=== PATIENT | female | born 1985 | race Caucasian/White ===

== ENCOUNTER 2019-09-21 17:48 | Emergency (ER) | payer MEDICAID ==
--- NOTE | 2019-09-21 18:34 | EDM.PDOC ---
<Gavin Carter - Last Filed: 09/21/19 18:28> ED HPI GENERAL MEDICAL PROBLEM - General Chief Complaint: Abdominal Pain Stated Complaint: ABDOMINAL PAIN Time Seen by Provider: 09/21/19 18:14 Source of Information: Reports: Family History Limitations: Reports: Other (Resident of [facility] History of cerberal palsy. ) - History of Present Illness INITIAL COMMENTS - FREE TEXT/NARRATIVE: Mariela is a 33 YO female that presents from [facility] to the ED with burning during urination. PT is a poor historian but is accompanied by her mother. Mother states that for the past 2-3 days Mariela has been complaining of right sided abdominal pain and burning during urination. It was initially thought to be constipation since she has a history of this but she was given prunes to help passage. Mother believes that Mariela possibly had a bowel movement yesterday. Complaint of abdominal pain persisted after. Onset Date: 09/19/19 Duration: Day(s): Location: Reports: Abdomen Abdomen Pain Score (Numeric/FACES): 6 - Related Data Allergies Allergy/AdvReac Type Severity Reaction Status Date / Time Sulfa (Sulfonamide Allergy Vomiting Verified 09/21/19 18:13 Antibiotics) Home Meds: Home Meds Budesonide [Pulmicort] 1 package INH BID 09/21/19 [History] Calcium Cit/Mgox/Vit D3/B6/Min [Calcium Citrate Plus Tablet] 1 tab PO BID 09/21/19 [History] Cetirizine [ZyrTEC] 10 mg PO DAILY 09/21/19 [History] Fluticasone Propionate [Flovent] 2 spray INH DAILY 09/21/19 [History] Formoterol Fumarate [Perforomist] 1 vial INH BID 09/21/19 [History] Lactulose 15 ml PO DAILY #500 ml 09/21/19 [Rx] Montelukast [Singulair] 10 mg PO DAILY 09/21/19 [History] Neilmed Sinus Rinse 1 dose NASBOTH DAILY 09/21/19 [History] Psyllium Husk (With Sugar) [Fiber Therapy Powder] 1 dose PO DAILY 09/21/19 [History] Risedronate Sodium 35 mg pe PO ASDIRECTED 09/21/19 [History] Triamcinolone Acetonide [Triamcinolone Acetonide 0.1% Crm] 1 applic TOP ASDIRECTED 09/21/19 [History] cephALEXin [Cephalexin] 500 mg PO BID #10 capsule 09/21/19 [Rx] Past Medical History Other Cardiovascular History: heart surgery Respiratory History: Reports: Asthma Neurological History: Reports: Cerebral Palsy, Seizure Psychiatric History: Reports: Anxiety - Past Surgical History HEENT Surgical History: Reports: Adenoidectomy, Tonsillectomy Social & Family History - Tobacco Use Smoking Status *Q: Never Smoker Second Hand Smoke Exposure: No - Caffeine Use Caffeine Use: Reports: None - Recreational Drug Use Recreational Drug Use: No ED ROS GENERAL - Review of Systems Review Of Systems: Comprehensive ROS is negative, except as noted in HPI. ED EXAM, RENAL/ - Physical Exam Exam: See Below Exam Limited By: Other (Resident of [facility] History of CP.) General Appearance: Alert, No Apparent Distress Respiratory/Chest: No Respiratory Distress, Lungs Clear, Normal Breath Sounds, No Accessory Muscle Use Cardiovascular: Regular Rate, Rhythm, No Gallop, No Murmur, No Rub GI/Abdominal: Normal Bowel Sounds, Soft, No Distention, Tender Back Exam: No: CVA Tenderness (L), CVA Tenderness (R) Neurological: Alert Skin Exam: Warm, Dry, Normal Color Departure - Departure Disposition: Home, Self-Care 01 Clinical Impression: UTI (urinary tract infection) Qualifiers: Urinary tract infection type: acute cystitis Hematuria presence: without hematuria Qualified Code(s): N30.00 - Acute cystitis without hematuria Constipation Qualifiers: Constipation type: other constipation type Qualified Code(s): K59.09 - Other constipation - Discharge Information Prescriptions: cephALEXin [Cephalexin] 500 mg PO BID #10 capsule Lactulose 15 ml PO DAILY #500 ml Instructions: Constipation, Adult, [id number], Urinary Tract Infection, Adult, [id number] Forms: ED Department Discharge Additional Instructions: You have been evaluated in the ED for your urinary symptoms/abdomen pain. Your urinalysis was consistent with an acute urinary tract infection. Your urine was sent for culture, and you will be notified if you should need a change in your antibiotic. This may take up to 48 hours to result. You may take AZO for urinary pain relief. This is available over the counter, and can be attained at any retail store like [employer] or any pharmacy. Please be aware that this medication will make your urine turn orange. You have been given a prescription for Cephalexin, 500 mg 1 tablet 2 times a day for 5 days. This antibiotic can take up to 48 hours to start providing benefit. Your other lab work was unremarkable for any sign of a bacterial infection. Your physical exam and work-up today is not consistent with appendicitis at this time. Your x-ray did demonstrate quite a diffuse amount of stool throughout your colon which is more consistent with constipation. You have been provided with a bottle of magnesium citrate, please drink one half bottle mixed with fluid of choice, if you do not have a rather large bowel movement in a few hours, please repeat with the other half bottle. This medication can cause some abdominal cramping, you might want to try some Tylenol or ibuprofen while using this medication if you are having abdominal pain. After you have taken the mag citrate and have had a few good bowel movements, you were given a prescription for lactulose, please take 15 mL's daily to provide further constipation relief, and keep your bowels regular. You may also try an [id number] stool softener like MiraLAX, Dulcolax, etc. Please increase your oral fluid intake and try to stay adequately hydrated. Please return to the ED if your symptoms change or worsen. Sepsis Event Note (ED) - Evaluation Sepsis Screening Result: No Definite Risk <Harriett Vincent - Last Filed: 09/21/19 19:32> Course - Vital Signs Last Recorded V/S: Last Vital Signs Temp 98.4 F 09/21/19 18:07 Pulse 71 09/21/19 18:07 Resp 13 09/21/19 18:07 BP 134/96 H 09/21/19 18:07 Pulse Ox 100 09/21/19 18:07 - Orders/Labs/Meds Orders: Active Orders 24 hr Category Date Time Status KUB [Abdomen 1V Flat] [CR] Stat Exams 09/21/19 18:35 Ordered CBC WITH AUTO DIFF [HEME] Stat Lab 09/21/19 18:35 Ordered CULTURE URINE [RM] Routine Lab 09/21/19 19:23 Ordered Labs: Laboratory Tests 09/21/19 09/21/19 09/21/19 Range/Units 18:50 18:50 19:00 WBC 10.61 H (3.98-10.04) K/mm3 RBC 4.80 (3.98-5.22) M/mm3 Hgb 15.3 (11.2-15.7) gm/dl Hct 46.4 H (34.1-44.9) % MCV 96.7 H (79.4-94.8) fl MCH 31.9 (25.6-32.2) pg MCHC 33.0 (32.2-35.5) g/dl RDW Std Deviation 48.6 H (36.4-46.3) fL Plt Count 347 (182-369) K/mm3 MPV 9.9 (9.4-12.3) fl Neut % (Auto) 62.4 (34.0-71.1) % Lymph % (Auto) 26.6 (19.3-51.7) % [place] % (Auto) 9.0 (4.7-12.5) % Eos % (Auto) 1.2 (0.7-5.8) Baso % (Auto) 0.5 (0.1-1.2) % Neut # (Auto) 6.62 H (1.56-6.13) K/mm3 Lymph # (Auto) 2.82 (1.18-3.74) K/mm3 Gates # (Auto) 0.96 H (0.24-0.36) K/mm3 Eos # (Auto) 0.13 (0.04-0.36) K/mm3 Baso # (Auto) 0.05 (0.01-0.08) K/mm3 Sodium 142 (136-145) mEq/L Potassium 4.1 (3.5-5.1) mEq/L Chloride 104 (98-107) mEq/L Carbon Dioxide 32 (21-32) mEq/L Anion Gap 10.1 (5-15) BUN 12 (7-18) mg/dL Creatinine 1.0 (0.55-1.02) mg/dL Est Cr Clr Drug Dosing 62.10 mL/min Estimated GFR (MDRD) > 60 (>60) mL/min BUN/Creatinine Ratio 12.0 L (14-18) Glucose 93 (74-106) mg/dL Calcium 8.5 (8.5-10.1) mg/dL Total Bilirubin 0.2 (0.2-1.0) mg/dL AST 14 L (15-37) U/L ALT 23 (14-59) U/L Alkaline Phosphatase 63 (46-116) U/L C-Reactive Protein 1.2 H* (<1.0) mg/dL Total Protein 7.2 (6.4-8.2) g/dl Albumin 3.6 (3.4-5.0) g/dl Globulin 3.6 gm/dL Albumin/Globulin Ratio 1.0 (1-2) Urine Color Light yellow (Yellow) Urine Appearance Clear (Clear) Urine pH 6.0 (5.0-8.0) Ur Specific [place] 1.025 (1.005-1.030) Urine Protein Negative (Negative) Urine Glucose (UA) Negative (Negative) Urine Ketones Negative (Negative) Urine Occult Blood 1+ H (Negative) Urine Nitrite Negative (Negative) Urine Bilirubin Negative (Negative) Urine Urobilinogen 0.2 (0.2-1.0) Ur Leukocyte Esterase 1+ H (Negative) Urine RBC 0-5 (0-5) /hpf Urine WBC 5-10 H (0-5) /hpf Ur Squamous Epith Cells 0-5 (0-5) /hpf Urine Bacteria Rare (FEW) /hpf Urine Mucus Not seen (FEW) /hpf - Re-Assessments/Exams Free Text/Narrative Re-Assessment/Exam: 09/21/19 18:42 Patient presents to the ED with her mother for the evaluation of her abdomen pain. I do highly suspect UTI in nature, mother is worried about appendicitis. Patient is most tender in her upper abdomen, which be more consistent with a course of constipation, for which the patient chronically has. I did explain this to the mother, but will order CBC, CMP CRP and a KUB for initial management regarding her belly pain and trying to evaluate for possible appendicitis. 09/21/19 19:27 Patient's KUB is impressive for quite a bit of stool throughout the colon. Patient's white blood cell count is mildly elevated at 10.6, with no left shift, which can be a stress response. Patient CRP is mildly elevated 1.2, other metabolic panel is unremarkable. Patient's urinalysis is positive for 1+ leukocyte Estrace and 5-10 white blood cells, this was a clean-catch. Will be sent for culture for confirmation, but it does appear that she is suffering from UTI and constipation. There is no obvious sign of appendicitis, Becerril's point, Rovsing sign was negative. Patient has no fever. She will be given a bottle of magnesium citrate to help clean her bowels out and started on lactulose after this to help good bowel health regimen. Departure - Departure Time of Disposition: 19:29 Condition: Good - Discharge Information *PRESCRIPTION DRUG MONITORING PROGRAM REVIEWED*: No *COPY OF PRESCRIPTION DRUG MONITORING REPORT IN PATIENT NELL: No Sepsis Event Note (ED) - Focused Exam Vital Signs: Vital Signs Temp Pulse Resp BP Pulse Ox 09/21/19 18:07 98.4 F 71 13 134/96 H 100 - My Orders Last 24 Hours: My Active Orders 09/21/19 18:35 KUB [Abdomen 1V Flat] [CR] Stat CBC WITH AUTO DIFF [HEME] Stat 09/21/19 19:23 CULTURE URINE [RM] Routine - Assessment/Plan Last 24 Hours: My Active Orders 09/21/19 18:35 KUB [Abdomen 1V Flat] [CR] Stat CBC WITH AUTO DIFF [HEME] Stat 09/21/19 19:23 CULTURE URINE [RM] Routine
[2019-09-21] MEDS ORDERED: Magnesium Citrate Solution 296 ML Bottle PO ONE (19:28)
--- NOTE | 2019-09-21 19:43 | CR ---
Abdomen: Supine view of the abdomen was obtained. Mild increased stool within the transverse and right colon is seen. Lesser stool within other portions of the colon. Bowel gas pattern is otherwise unremarkable. Minimal calcifications believed to be benign are seen within the pelvis. Bony structure shows minimal scoliosis within the spine. Impression: 1. Findings as noted above. 2. Nothing acute is appreciated. Diagnostic code #2 Report dictated in MDT
== END 2019-09-21 19:52 | disposition home or self-care (01) ==
LOC: JD.ED 17:48
DX: N30.00 Acute cystitis without hematuria (principal); K59.09 Other constipation; J45.909 Unspecified asthma, uncomplicated; Z90.49 Acquired absence of other specified parts of digestive tract; Z98.890 Other specified postprocedural states; Z88.2 Allergy status to sulfonamides
CPT/HCPCS: 36415; 74018; 80053; 81001; 85025; 86140; 87086; 87088; 99284; A9270; 99283

== ENCOUNTER 2022-06-08 14:21 | Emergency (ER) | payer MEDICAID | END 2022-06-08 17:12 | LOC: EEVIPCON 14:21 → JD.ED 14:21 | DX: Z53.21 Procedure and treatment not carried out due to patient leaving prior to being seen by health care provider (principal) ==

== ENCOUNTER 2022-07-18 15:05 | Emergency (ER) | payer MEDICAID ==
[2022-07-18] MEDS ORDERED: Sodium Chloride 0.9% 10 ML Syringe FLUSH PRN (15:14)
[2022-07-18 15:25] LABS: BASOPHILS ABSOLUTE AUTO 0.05 K/mm3 (0.01-0.08); BASOPHILS PERCENT AUTO 0.5 % (0.1-1.2); EOSINOPHILS ABSOLUTE AUTO 0.13 K/mm3 (0.04-0.36); EOSINOPHILS PERCENT AUTO 1.3 (0.7-5.8); HEMATOCRIT 47.9 % (34.1-44.9); HEMOGLOBIN 15.9 gm/dl (11.2-15.7); IMMATURE GRAN ABSOLUTE AUTO 0.04 K/mm3 (0.00-0.10); IMMATURE GRAN PERCENT AUTO 0.4 % (<=1.0); LYMPHOCYTES ABSOLUTE AUTO 2.42 K/mm3 (1.18-3.74); LYMPHOCYTES PERCENT AUTO 24.1 % (19.3-51.7); MEAN CORPUSCULAR HGB CONC 33.2 g/dl (32.2-35.5); MEAN CORPUSCULAR VOLUME 96.4 fl (79.4-94.8); MEAN PLATELET VOLUME 10.1 fl (9.4-12.3); MONOCYTES ABSOLUTE AUTO 0.89 K/mm3 (0.24-0.36); MONOCYTES PERCENT AUTO 8.9 % (4.7-12.5); NEUTROPHILS PERCENT AUTO 64.8 % (34.0-71.1); PLATELET COUNT,PLT 362 K/mm3 (182-369); RED BLOOD CELL COUNT 4.97 M/mm3 (3.98-5.22); WHITE BLOOD CELL COUNT,WBC 10.03 K/mm3 (3.98-10.04)
[2022-07-18 15:49] LABS: A/G RATIO 0.9 (1-2); ALANINE AMINOTRANSFERASE,ALT 26 U/L (14-59); ALBUMIN 3.9 g/dl (3.4-5.0); ALKALINE PHOSPHATASE 66 U/L (46-116); ANION GAP 14.5 (5-15); ASPARTATE AMNIOTRANSFERASE,AST 32 U/L (15-37); BILIRUBIN TOTAL 0.4 mg/dL (0.2-1.0); BLOOD UREA NITROGEN,BUN 15 mg/dL (7-18); BUN/CREATININE RATIO 13.6 (14-18); CALCIUM 9.5 mg/dL (8.5-10.1); CARBON DIOXIDE,CO2 27 mEq/L (21-32); CHLORIDE,CL 102 mEq/L (98-107); CREATININE 1.1 mg/dL (0.55-1.02); ESTIMATED GFR 66 mL/min (>60); GLUCOSE RANDOM 128 mg/dL (70-99); PROTEIN TOTAL,TP 8.1 g/dl (6.4-8.2); SODIUM,NA 139 mEq/L (136-145)
[2022-07-18 15:50] LABS: POTASSIUM,K 4.5 mEq/L (3.5-5.1); TROPONIN I HIGH SENSITIVITY < 4 pg/mL (<=51)
== END 2022-07-18 17:00 | disposition home or self-care (01) ==
LOC: JD.ED 15:05
DX: R55 Syncope and collapse (principal); J45.909 Unspecified asthma, uncomplicated; Z79.899 Other long term (current) drug therapy; Z88.2 Allergy status to sulfonamides
CPT/HCPCS: 36415; 70450; 71045; 80053; 84484; 85025; 93005; 99285; J3490

== ENCOUNTER 2023-03-18 07:18 | Inpatient (IN) | payer MEDICAID ==
[2023-03-18] MEDS ORDERED: Lactated Ringers 1,000 ML IV ONE (07:42)
[2023-03-18 08:04] LABS: BASOPHILS ABSOLUTE AUTO 0.1 K/mm3 (0.0-0.2); BASOPHILS PERCENT AUTO 0.3 % (0.0-1.0); EOSINOPHILS PERCENT AUTO 0.1 % (0.0-6.0); HEMATOCRIT 48.5 % (37.0-47.0); HEMOGLOBIN 16.5 gm/dl (12.0-16.0); IMMATURE GRAN ABSOLUTE AUTO 0.08 K/mm3 (0.00-0.05); IMMATURE GRAN PERCENT AUTO 0.4 % (0.0-0.4); LYMPHOCYTES ABSOLUTE AUTO 1.1 K/mm3 (1.0-4.8); LYMPHOCYTES PERCENT AUTO 5.4 % (24.0-44.0); MEAN CORPUSCULAR VOLUME 94.2 fl (83.0-99.0); MEAN PLATELET VOLUME 9.5 fl (9.4-12.3); MONOCYTES ABSOLUTE AUTO 1.2 K/mm3 (0.0-0.8); NEUTROPHILS ABSOLUTE AUTO 17.4 K/mm3 (1.8-7.7); NEUTROPHILS PERCENT AUTO 87.8 % (41.0-71.0); PLATELET COUNT,PLT 317 K/mm3 (150-400); RED BLOOD CELL COUNT 5.15 M/mm3 (4.10-5.30); WHITE BLOOD CELL COUNT,WBC 19.76 K/mm3 (3.9-11.3)
[2023-03-18 08:24] LABS: ALBUMIN 3.8 g/dl (3.4-5.0); ANION GAP 14.3 (5-15); BILIRUBIN TOTAL 0.6 mg/dL (0.2-1.0); BUN/CREATININE RATIO 9.1 (14-18); CALCIUM 9.5 mg/dL (8.5-10.1); CREATININE 1.1 mg/dL (0.55-1.02); EST CRCL DRUG DOSING (CG) 54.31 mL/min; POTASSIUM,K 4.3 mEq/L (3.5-5.1); PROTEIN TOTAL,TP 7.7 g/dl (6.4-8.2)
[2023-03-18 08:51] LABS: CORONAVIRUS COVID-19 NAA NEGATIVE (NEGATIVE); INFLUENZA A NAA NEGATIVE (NEGATIVE); RESPIRATORY SYNCYTIAL VIR NAA NEGATIVE (NEGATIVE)
[2023-03-18 09:24] LABS: APPEARANCE,URINE CLEAR (Clear); BILIRUBIN,URINE NEGATIVE (Negative); COLOR,URINE LIGHT YELLOW (Yellow); GLUCOSE,URINE NEGATIVE (Negative); KETONES,URINE NEGATIVE (Negative); LEUKOCYTE ESTERASE,URINE 2+ (Negative); NITRITE,URINE POSITIVE (Negative); OCCULT BLOOD,URINE TRACE-INTACT (Negative); PROTEIN,URINE NEGATIVE (Negative); UROBILINOGEN,URINE 0.2 (0.2-1.0)
[2023-03-18 09:56] LABS: BACTERIA,URINE MANY /hpf (FEW); EPITHELIAL CELLS,URINE 0-5 /hpf (0-5); MUCUS,URINE FEW /hpf (FEW); WBC,URINE 20-30 /hpf (0-5)
[2023-03-18] MEDS ORDERED: cefTRIAXone 1 GM in Sodium Chloride 0.9% 100 ML IV ONE (10:08)
[2023-03-18] MEDS ORDERED: Sodium Chloride 0.9% 1,000 ML IV SCH (10:15)
[2023-03-18] MEDS: Piperacillin/Tazobactam 4.5 GM in Sodium Chloride 0.9% 100 ML IV SCH ×2 (10:48→17:51)
[2023-03-18] MEDS ORDERED: Ondansetron 4 MG/2 ML SDV IVPUSH ONE (13:44)
[2023-03-18] MEDS ORDERED: Acetaminophen 325 MG Tab PO PRN (15:46)
[2023-03-18] MEDS ORDERED: Docusate Sodium 100 MG Cap PO PRN (15:46)
[2023-03-18] MEDS ORDERED: Ondansetron 4 MG Tab.DIS PO PRN (15:46)
[2023-03-18] MEDS ORDERED: Albuterol 6.7 GM Inhaler INH PRN (16:54)
[2023-03-18] MEDS: Ondansetron 4 MG/2 ML SDV IV PRN (19:53)
[2023-03-18] MEDS: Budesonide 0.5 MG/2 ML Neb Susp NEB SCH (20:38)
[2023-03-18] MEDS: Arformoterol 15 MCG/2 ML Neb Soln NEB SCH (20:38)
[2023-03-18] MEDS: Montelukast 10 MG Tab PO SCH (21:00)
[2023-03-19] MEDS: Piperacillin/Tazobactam 4.5 GM in Sodium Chloride 0.9% 100 ML IV SCH ×3 (02:39→18:18)
[2023-03-19 04:37] LABS: BASOPHILS ABSOLUTE AUTO 0.1 K/mm3 (0.0-0.2); BASOPHILS PERCENT AUTO 0.3 % (0.0-1.0); EOSINOPHILS PERCENT AUTO 0.1 % (0.0-6.0); HEMATOCRIT 43.5 % (37.0-47.0); HEMOGLOBIN 14.9 gm/dl (12.0-16.0); IMMATURE GRAN PERCENT AUTO 0.5 % (0.0-0.4); LYMPHOCYTES ABSOLUTE AUTO 1.8 K/mm3 (1.0-4.8); LYMPHOCYTES PERCENT AUTO 8.7 % (24.0-44.0); MEAN CORPUSCULAR HEMOGLOBIN 32.2 pg (28.0-32.0); MEAN CORPUSCULAR HGB CONC 34.3 g/dl (32.0-36.0); MEAN PLATELET VOLUME 9.7 fl (9.4-12.3); MONOCYTES ABSOLUTE AUTO 1.6 K/mm3 (0.0-0.8); MONOCYTES PERCENT AUTO 7.6 % (0.0-8.0); NEUTROPHILS ABSOLUTE AUTO 17.5 K/mm3 (1.8-7.7); NEUTROPHILS PERCENT AUTO 82.8 % (41.0-71.0); PLATELET COUNT,PLT 304 K/mm3 (150-400); RED BLOOD CELL COUNT 4.63 M/mm3 (4.10-5.30); WHITE BLOOD CELL COUNT,WBC 21.14 K/mm3 (3.9-11.3)
[2023-03-19 05:11] LABS: A/G RATIO 0.7 (1-2); ALBUMIN 2.9 g/dl (3.4-5.0); ANION GAP 16.7 (5-15); BILIRUBIN TOTAL 0.9 mg/dL (0.2-1.0); BUN/CREATININE RATIO 7.3 (14-18); CALCIUM 8.6 mg/dL (8.5-10.1); CREATININE 1.1 mg/dL (0.55-1.02); EST CRCL DRUG DOSING (CG) 54.31 mL/min; POTASSIUM,K 3.7 mEq/L (3.5-5.1)
[2023-03-19] MEDS: Budesonide 0.5 MG/2 ML Neb Susp NEB SCH ×2 (05:34→20:28)
[2023-03-19] MEDS: Arformoterol 15 MCG/2 ML Neb Soln NEB SCH ×2 (05:34→20:28)
[2023-03-19 05:40] LABS: C-REACTIVE PROTEIN 17.2 mg/dL (<1.0)
[2023-03-19 06:21] LABS: SLIDE REVIEW ABNORMAL SMEAR
[2023-03-19] MEDS ORDERED: Lactated Ringers 1,000 ML IV SCH (07:45)
[2023-03-19] MEDS: Fluticasone NASAL Spray 16 GM Bottle NASBOTH SCH (08:32)
[2023-03-19] MEDS: Ondansetron 4 MG/2 ML SDV IV PRN (08:32)
[2023-03-19] MEDS: Polyethylene Glycol 3350 Powder 17 GM Packet PO SCH (08:32)
[2023-03-19] MEDS: Enoxaparin 40 MG/0.4 ML Syringe SUBCUT SCH (08:32)
[2023-03-19] MEDS: Loratadine 10 MG Tab PO SCH (08:33)
[2023-03-19] MEDS ORDERED: RISEDRONATE SODIUM 35 MG PO SCH (14:00)
[2023-03-19] MEDS ORDERED: Non-Formulary Medication 1 Each (Risedronate Sodium [Risedronate Sodium] 35 MG Tablet) PO SCH (16:54)
[2023-03-19] MEDS ORDERED: Lactated Ringers 1,000 ML ONE (20:16)
[2023-03-19] MEDS: Montelukast 10 MG Tab PO SCH (20:21)
[2023-03-20] MEDS: Piperacillin/Tazobactam 4.5 GM in Sodium Chloride 0.9% 100 ML IV SCH ×3 (02:00→18:13)
[2023-03-20 05:35] LABS: BASOPHILS ABSOLUTE AUTO 0.1 K/mm3 (0.0-0.2); BASOPHILS PERCENT AUTO 0.5 % (0.0-1.0); EOSINOPHILS ABSOLUTE AUTO 0.1 K/mm3 (0.0-0.4); EOSINOPHILS PERCENT AUTO 1.2 % (0.0-6.0); HEMATOCRIT 39.4 % (37.0-47.0); HEMOGLOBIN 13.6 gm/dl (12.0-16.0); IMMATURE GRAN ABSOLUTE AUTO 0.05 K/mm3 (0.00-0.05); IMMATURE GRAN PERCENT AUTO 0.4 % (0.0-0.4); LYMPHOCYTES ABSOLUTE AUTO 2.5 K/mm3 (1.0-4.8); LYMPHOCYTES PERCENT AUTO 21.5 % (24.0-44.0); MEAN CORPUSCULAR HEMOGLOBIN 32.5 pg (28.0-32.0); MEAN CORPUSCULAR HGB CONC 34.5 g/dl (32.0-36.0); MEAN CORPUSCULAR VOLUME 94.3 fl (83.0-99.0); MEAN PLATELET VOLUME 9.5 fl (9.4-12.3); MONOCYTES ABSOLUTE AUTO 0.7 K/mm3 (0.0-0.8); MONOCYTES PERCENT AUTO 6.2 % (0.0-8.0); NEUTROPHILS ABSOLUTE AUTO 8.1 K/mm3 (1.8-7.7); NEUTROPHILS PERCENT AUTO 70.2 % (41.0-71.0); PLATELET COUNT,PLT 284 K/mm3 (150-400); RED BLOOD CELL COUNT 4.18 M/mm3 (4.10-5.30); WHITE BLOOD CELL COUNT,WBC 11.58 K/mm3 (3.9-11.3)
[2023-03-20 06:04] LABS: ANION GAP 13.5 (5-15); CALCIUM 8.5 mg/dL (8.5-10.1); EST CRCL DRUG DOSING (CG) 59.74 mL/min; MAGNESIUM 2.1 mg/dL (1.8-2.4); POTASSIUM,K 3.5 mEq/L (3.5-5.1)
[2023-03-20 06:18] LABS: C-REACTIVE PROTEIN 14.9 mg/dL (<1.0)
[2023-03-20] MEDS: Arformoterol 15 MCG/2 ML Neb Soln NEB SCH ×2 (06:24→20:25)
[2023-03-20] MEDS: Budesonide 0.5 MG/2 ML Neb Susp NEB SCH ×2 (06:24→20:25)
[2023-03-20] MEDS: Polyethylene Glycol 3350 Powder 17 GM Packet PO SCH (07:54)
[2023-03-20] MEDS: Enoxaparin 40 MG/0.4 ML Syringe SUBCUT SCH (09:08)
[2023-03-20] MEDS: Loratadine 10 MG Tab PO SCH (09:08)
[2023-03-20] MEDS: Fluticasone NASAL Spray 16 GM Bottle NASBOTH SCH (09:09)
[2023-03-20] MEDS: Ondansetron 4 MG/2 ML SDV IV PRN (09:18)
[2023-03-20] MEDS: Montelukast 10 MG Tab PO SCH (21:21)
[2023-03-21] MEDS: Piperacillin/Tazobactam 4.5 GM in Sodium Chloride 0.9% 100 ML IV SCH ×2 (02:11→11:59)
[2023-03-21 05:32] LABS: BASOPHILS ABSOLUTE AUTO 0.1 K/mm3 (0.0-0.2); BASOPHILS PERCENT AUTO 0.7 % (0.0-1.0); EOSINOPHILS ABSOLUTE AUTO 0.2 K/mm3 (0.0-0.4); EOSINOPHILS PERCENT AUTO 2.2 % (0.0-6.0); HEMOGLOBIN 13.5 gm/dl (12.0-16.0); IMMATURE GRAN ABSOLUTE AUTO 0.04 K/mm3 (0.00-0.05); IMMATURE GRAN PERCENT AUTO 0.5 % (0.0-0.4); LYMPHOCYTES ABSOLUTE AUTO 2.5 K/mm3 (1.0-4.8); LYMPHOCYTES PERCENT AUTO 28.6 % (24.0-44.0); MEAN CORPUSCULAR HEMOGLOBIN 31.8 pg (28.0-32.0); MEAN CORPUSCULAR HGB CONC 33.8 g/dl (32.0-36.0); MEAN CORPUSCULAR VOLUME 94.1 fl (83.0-99.0); MEAN PLATELET VOLUME 9.5 fl (9.4-12.3); MONOCYTES ABSOLUTE AUTO 0.6 K/mm3 (0.0-0.8); MONOCYTES PERCENT AUTO 7.3 % (0.0-8.0); NEUTROPHILS ABSOLUTE AUTO 5.3 K/mm3 (1.8-7.7); NEUTROPHILS PERCENT AUTO 60.7 % (41.0-71.0); PLATELET COUNT,PLT 301 K/mm3 (150-400); RED BLOOD CELL COUNT 4.25 M/mm3 (4.10-5.30); WHITE BLOOD CELL COUNT,WBC 8.64 K/mm3 (3.9-11.3)
[2023-03-21 05:44] LABS: ANION GAP 14.4 (5-15); CALCIUM 8.8 mg/dL (8.5-10.1); EST CRCL DRUG DOSING (CG) 59.74 mL/min; MAGNESIUM 2.2 mg/dL (1.8-2.4); POTASSIUM,K 3.4 mEq/L (3.5-5.1)
[2023-03-21] MEDS: Arformoterol 15 MCG/2 ML Neb Soln NEB SCH (06:17)
[2023-03-21] MEDS: Budesonide 0.5 MG/2 ML Neb Susp NEB SCH (06:17)
[2023-03-21] MEDS ORDERED: Potassium Chloride 20 MEQ Tab.ER PO ONE (08:11)
[2023-03-21] MEDS: Enoxaparin 40 MG/0.4 ML Syringe SUBCUT SCH (08:34)
[2023-03-21] MEDS: Fluticasone NASAL Spray 16 GM Bottle NASBOTH SCH (08:34)
[2023-03-21] MEDS: Loratadine 10 MG Tab PO SCH (08:34)
[2023-03-21] MEDS: Polyethylene Glycol 3350 Powder 17 GM Packet PO SCH (08:34)
[2023-03-21] MEDS: Ondansetron 4 MG/2 ML SDV IV PRN (08:39)
[2023-03-21] MEDS ORDERED: Sodium Chloride 0.9% 100 ML ONE (10:53)
== END 2023-03-21 13:02 | disposition home or self-care (01) | DRG 872 ==
LOC: JD.ED 07:18 → JD.ICU 15:16
PROVIDERS: ADMIT Student in an Organized Health Care Education/Training Program; ATTEND Student in an Organized Health Care Education/Training Program
DX: A41.9 Sepsis, unspecified organism (principal); A41.51 Sepsis due to Escherichia coli [E. coli]; J45.909 Unspecified asthma, uncomplicated; N30.01 Acute cystitis with hematuria; I95.9 Hypotension, unspecified; J45.20 Mild intermittent asthma, uncomplicated; G80.9 Cerebral palsy, unspecified; F41.9 Anxiety disorder, unspecified; D72.829 Elevated white blood cell count, unspecified; Z11.52 Encounter for screening for COVID-19; Z88.2 Allergy status to sulfonamides; Z86.16 Personal history of COVID-19; Z90.89 Acquired absence of other organs; Z97.3 Presence of spectacles and contact lenses; Z79.899 Other long term (current) drug therapy
CPT/HCPCS: 0241U; 36415; 71045; 76770; 80048; 80053; 81001; 83605; 83735; 84703; 85025; 86140; 87040; 87086; 87088; 87186; 94640; 94667; 94668; 94761; 97110; 97161; 96361; 96374; 99222; 99231; 99232; 99239; 99285-25; A9270-GY; J1650; J2405; J2543; J3490; J7030; J7120

== ENCOUNTER 2023-06-07 16:05 | Emergency (ER) | payer MEDICAID ==
[2023-06-07] MEDS ORDERED: Sodium Chloride 0.9% 10 ML Syringe FLUSH PRN (16:33)
[2023-06-07 17:27] LABS: BASOPHILS PERCENT AUTO 0.7 % (0.0-1.0); EOSINOPHILS PERCENT AUTO 0.7 % (0.0-6.0); HEMATOCRIT 46.9 % (37.0-47.0); IMMATURE GRAN ABSOLUTE AUTO 0.02 K/mm3 (0.00-0.05); IMMATURE GRAN PERCENT AUTO 0.4 % (0.0-0.4); MEAN CORPUSCULAR HEMOGLOBIN 31.4 pg (28.0-32.0); MEAN CORPUSCULAR HGB CONC 33.7 g/dl (32.0-36.0); MEAN CORPUSCULAR VOLUME 93.2 fl (83.0-99.0); MEAN PLATELET VOLUME 9.4 fl (9.4-12.3); MONOCYTES ABSOLUTE AUTO 0.7 K/mm3 (0.0-0.8); MONOCYTES PERCENT AUTO 14.1 % (0.0-8.0); NEUTROPHILS ABSOLUTE AUTO 2.9 K/mm3 (1.8-7.7); NEUTROPHILS PERCENT AUTO 63.1 % (41.0-71.0); PLATELET COUNT,PLT 270 K/mm3 (150-400); RED BLOOD CELL COUNT 5.03 M/mm3 (4.10-5.30); WHITE BLOOD CELL COUNT,WBC 4.61 K/mm3 (3.9-11.3)
[2023-06-07 17:31] LABS: HEMOGLOBIN 15.8 gm/dl (12.0-16.0)
[2023-06-07 17:45] LABS: A/G RATIO 0.9 (1-2); ALBUMIN 3.5 g/dl (3.4-5.0); ANION GAP 13.5 (5-15); BILIRUBIN TOTAL 0.5 mg/dL (0.2-1.0); BUN/CREATININE RATIO 10.9 (14-18); C-REACTIVE PROTEIN 4.99 mg/dL (<0.30); CALCIUM 8.8 mg/dL (8.5-10.1); CREATININE 1.1 mg/dL (0.55-1.02); EST CRCL DRUG DOSING (CG) 54.31 mL/min; POTASSIUM,K 3.5 mEq/L (3.5-5.1); PROTEIN TOTAL,TP 7.3 g/dl (6.4-8.2)
[2023-06-07 18:08] LABS: APPEARANCE,URINE CLEAR (Clear); BILIRUBIN,URINE NEGATIVE (Negative); COLOR,URINE YELLOW (Yellow); GLUCOSE,URINE NEGATIVE (Negative); KETONES,URINE NEGATIVE (Negative); LEUKOCYTE ESTERASE,URINE NEGATIVE (Negative); NITRITE,URINE NEGATIVE (Negative); OCCULT BLOOD,URINE NEGATIVE (Negative); PH,URINE 5.5 (5.0-8.0); PROTEIN,URINE NEGATIVE (Negative); UROBILINOGEN,URINE 0.2 (0.2-1.0)
[2023-06-07 18:17] LABS: LACTIC ACID 1.2 mmol/L (0.4-2.0)
== END 2023-06-07 18:54 | disposition home or self-care (01) ==
LOC: JD.ED 16:05
DX: R50.9 Fever, unspecified (principal); J45.909 Unspecified asthma, uncomplicated; Z86.16 Personal history of COVID-19; Z79.51 Long term (current) use of inhaled steroids; Z88.2 Allergy status to sulfonamides; Z79.899 Other long term (current) drug therapy
CPT/HCPCS: 36415; 80053; 81003; 83605; 85025; 86140; 99283; C1758

== ENCOUNTER 2023-10-20 16:25 | Emergency (ER) | payer MEDICAID ==
[2023-10-20 18:03] LABS: BASOPHILS PERCENT AUTO 0.2 % (0.0-1.0); EOSINOPHILS PERCENT AUTO 0.1 % (0.0-6.0); HEMATOCRIT 46.8 % (37.0-47.0); IMMATURE GRAN ABSOLUTE AUTO 0.09 K/mm3 (0.00-0.05); IMMATURE GRAN PERCENT AUTO 0.5 % (0.0-0.4); LYMPHOCYTES ABSOLUTE AUTO 1.1 K/mm3 (1.0-4.8); LYMPHOCYTES PERCENT AUTO 6.6 % (24.0-44.0); MEAN CORPUSCULAR HEMOGLOBIN 32.5 pg (28.0-32.0); MEAN CORPUSCULAR HGB CONC 34.2 g/dl (32.0-36.0); MEAN CORPUSCULAR VOLUME 94.9 fl (83.0-99.0); MEAN PLATELET VOLUME 9.7 fl (9.4-12.3); MONOCYTES ABSOLUTE AUTO 0.8 K/mm3 (0.0-0.8); MONOCYTES PERCENT AUTO 4.9 % (0.0-8.0); NEUTROPHILS ABSOLUTE AUTO 14.4 K/mm3 (1.8-7.7); NEUTROPHILS PERCENT AUTO 87.7 % (41.0-71.0); PLATELET COUNT,PLT 335 K/mm3 (150-400); RED BLOOD CELL COUNT 4.93 M/mm3 (4.10-5.30); WHITE BLOOD CELL COUNT,WBC 16.45 K/mm3 (3.9-11.3)
[2023-10-20 18:25] LABS: APPEARANCE,URINE CLEAR (Clear); BILIRUBIN,URINE NEGATIVE (Negative); COLOR,URINE YELLOW (Yellow); GLUCOSE,URINE NEGATIVE (Negative); KETONES,URINE NEGATIVE (Negative); LEUKOCYTE ESTERASE,URINE NEGATIVE (Negative); NITRITE,URINE NEGATIVE (Negative); OCCULT BLOOD,URINE NEGATIVE (Negative); PROTEIN,URINE NEGATIVE (Negative); UROBILINOGEN,URINE 0.2 (0.2-1.0)
[2023-10-20 18:35] LABS: A/G RATIO 1.1 (1-2); ALANINE AMINOTRANSFERASE,ALT 20 U/L (14-59); ALBUMIN 3.8 g/dl (3.4-5.0); ALKALINE PHOSPHATASE 60 U/L (46-116); ANION GAP 10.5 (5-15); ASPARTATE AMNIOTRANSFERASE,AST 16 U/L (15-37); BILIRUBIN TOTAL 0.3 mg/dL (0.2-1.0); BLOOD UREA NITROGEN,BUN 18 mg/dL (7-18); BUN/CREATININE RATIO 16.4 (14-18); CALCIUM 9.5 mg/dL (8.5-10.1); CARBON DIOXIDE,CO2 29 mEq/L (21-32); CHLORIDE,CL 100 mEq/L (98-107); CREATININE 1.1 mg/dL (0.55-1.02); ESTIMATED GFR 65 mL/min (>60); GLUCOSE RANDOM 131 mg/dL (70-99); POTASSIUM,K 4.5 mEq/L (3.5-5.1); PROTEIN TOTAL,TP 7.4 g/dl (6.4-8.2); SODIUM,NA 135 mEq/L (136-145)
[2023-10-20 18:38] LABS: LACTIC ACID 1.1 mmol/L (0.4-2.0)
== END 2023-10-20 19:48 | disposition home or self-care (01) ==
LOC: JD.ED 16:25
DX: S82.102A Unspecified fracture of upper end of left tibia, initial encounter for closed fracture (principal); Z88.2 Allergy status to sulfonamides; Z79.899 Other long term (current) drug therapy; Z86.16 Personal history of COVID-19; W19.XXXA Unspecified fall, initial encounter
CPT/HCPCS: 36415; 73562; 80053; 81003; 83605; 85025; 99284; C1758; 99283

== ENCOUNTER 2023-10-21 09:27 | Emergency (ER) | payer MEDICAID ==
[2023-10-21] MEDS: Ondansetron 4 MG Tab.DIS PO ONE (11:09)
[2023-10-21] MEDS: Acetaminophen/HYDROcodone 325-5 MG Tab PO ONE (11:09)
[2023-10-21] MEDS ORDERED: Sodium Chloride 0.9% 10 ML Syringe FLUSH PRN (14:15)
[2023-10-21 14:51] LABS: BASOPHILS PERCENT AUTO 0.1 % (0.0-1.0); EOSINOPHILS PERCENT AUTO 0.1 % (0.0-6.0); HEMATOCRIT 45.2 % (37.0-47.0); HEMOGLOBIN 15.3 gm/dl (12.0-16.0); IMMATURE GRAN ABSOLUTE AUTO 0.04 K/mm3 (0.00-0.05); IMMATURE GRAN PERCENT AUTO 0.3 % (0.0-0.4); LYMPHOCYTES ABSOLUTE AUTO 1.4 K/mm3 (1.0-4.8); LYMPHOCYTES PERCENT AUTO 10.3 % (24.0-44.0); MEAN CORPUSCULAR HEMOGLOBIN 31.9 pg (28.0-32.0); MEAN CORPUSCULAR HGB CONC 33.8 g/dl (32.0-36.0); MEAN CORPUSCULAR VOLUME 94.2 fl (83.0-99.0); MEAN PLATELET VOLUME 9.7 fl (9.4-12.3); MONOCYTES ABSOLUTE AUTO 1.2 K/mm3 (0.0-0.8); MONOCYTES PERCENT AUTO 8.5 % (0.0-8.0); NEUTROPHILS ABSOLUTE AUTO 10.9 K/mm3 (1.8-7.7); NEUTROPHILS PERCENT AUTO 80.7 % (41.0-71.0); PLATELET COUNT,PLT 346 K/mm3 (150-400); WHITE BLOOD CELL COUNT,WBC 13.56 K/mm3 (3.9-11.3)
[2023-10-21 15:26] LABS: ALBUMIN 3.6 g/dl (3.4-5.0); ANION GAP 12.9 (5-15); BILIRUBIN TOTAL 0.6 mg/dL (0.2-1.0); CALCIUM 9.4 mg/dL (8.5-10.1); EST CRCL DRUG DOSING (CG) 67.29 mL/min; POTASSIUM,K 3.9 mEq/L (3.5-5.1); PROTEIN TOTAL,TP 7.2 g/dl (6.4-8.2)
[2023-10-21 16:53] LABS: APPEARANCE,URINE CLEAR (Clear); BILIRUBIN,URINE NEGATIVE (Negative); COLOR,URINE YELLOW (Yellow); GLUCOSE,URINE NEGATIVE (Negative); KETONES,URINE NEGATIVE (Negative); LEUKOCYTE ESTERASE,URINE NEGATIVE (Negative); NITRITE,URINE NEGATIVE (Negative); OCCULT BLOOD,URINE NEGATIVE (Negative); PROTEIN,URINE NEGATIVE (Negative); UROBILINOGEN,URINE 0.2 (0.2-1.0)
[2023-10-21 17:00] LABS: RBC,URINE 0-5 /hpf (0-5); SQUAMOUS EPITHELIAL CELLS,UR 0-5 /hpf (0-5)
[2023-10-21 17:01] LABS: BACTERIA,URINE FEW /hpf (FEW); MUCUS,URINE NOT SEEN /hpf (FEW)
[2023-10-21] MEDS: Ondansetron 4 MG/2 ML SDV IVPUSH ONE (18:22)
[2023-10-21] MEDS: Montelukast 10 MG Tab PO ONE (20:20)
[2023-10-21] MEDS: Calcium Carbonate/Vitamin D3 600 MG-200 Units Tab PO ONE (20:20)
[2023-10-21] MEDS: Budesonide 0.5 MG/2 ML Neb Susp NEB ONE (20:24)
[2023-10-22] MEDS: Acetaminophen 325 MG Tab PO ONE (10:35)
== END 2023-10-22 11:39 | disposition home or self-care (01) ==
LOC: JD.ED 09:27
DX: S82.142A Displaced bicondylar fracture of left tibia, initial encounter for closed fracture (principal); J45.909 Unspecified asthma, uncomplicated; Z86.16 Personal history of COVID-19; Z79.899 Other long term (current) drug therapy; Z88.2 Allergy status to sulfonamides; W19.XXXA Unspecified fall, initial encounter
CPT/HCPCS: 36415; 71045; 73502; 73560; 73700; 80053; 81001; 85025; 87086; 94640; 96374; 99285; A9270; J2405; 73552-LT; 99283; J3490